=== PATIENT | male | born 1955 | race Caucasian/White ===

== ENCOUNTER 2021-02-15 12:13 | Emergency (ER) | payer OTHER ==
[~2021-02-15] VITALS: Ht 185.4 cm; Wt 74.4 kg
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
[2021-02-15] MEDS ORDERED: TDAP [DIPH/PERTUSSIS/TET] 0.5 ML VIAL IM ONE ×2 (13:53→14:00)
[2021-02-15] MEDS ORDERED: KETOROLAC TROMETHAMINE INJ 30 MG/ML VIAL ONE (13:53)
[2021-02-15] MEDS ORDERED: KETOROLAC TROMETHAMINE INJ 60 MG/2 ML VIAL IM ONE (14:00)
--- NOTE | 2021-02-15 14:15 | NUR ---
undergraduate internship at bedside
--- NOTE | 2021-02-15 15:20 | NUR ---
EMT AT BEDSIDE FOR WOUND CARE
[2021-02-15] MEDS ORDERED: AMOX-430 PO (15:22)
[2021-02-15 15:44] VITALS: BP 121/75
--- NOTE | 2021-02-15 15:44 | NUR ---
Patient discharged to home in stable condition. Written and verbal after care instructions given. Patient verbalizes understanding of instruction.
== END 2021-02-15 15:44 | disposition home or self-care (01) ==
LOC: ER 14:05
DX: S61.432A Puncture wound without foreign body of left hand, initial encounter (principal); W54.0XXA Bitten by dog, initial encounter; Y93.89 Activity, other specified; Y92.89 Other specified places as the place of occurrence of the external cause; Y99.8 Other external cause status
CPT/HCPCS: 73130; 90471; 90715; 96372; 99284; J1885